=== PATIENT | female | born 1950 | race Caucasian/White ===

== ENCOUNTER 2020-05-21 14:24 | Inpatient (IN) | payer MEDICARE, MEDICAID ==
[~2020-05-21] VITALS: Ht 160 cm; Wt 68.9 kg
[~2020-05-21 14:24] MED LIST: GABA-531 PO; HYDR-523 PO; INSU100V28 IJ; MELO-106 PO; OXYB5TAB16 PO; TRAM50TA3 PO
[2020-05-21] MEDS ORDERED: SODIUM CHLORIDE 0.9% 1,000 ML IV ONE ×2 (15:06→22:45)
[2020-05-21] MEDS ORDERED: ONDANSETRON HCL 4MG/2ML INJ IV STA (15:06)
[2020-05-21] MEDS ORDERED: MORPHINE SULFATE 4 MG/ML CPJ (NOT FOR IM USE) IV ONE ×3 (15:30→22:45)
[2020-05-21 15:59] LABS: CHLORIDE 102 mEq/L (98-107)
[2020-05-21 16:08] LABS: BASOPHILS % 0.3 % (0.0-2.0); EOSINOPHILS % 0.2 % (0.0-5.0); HEMATOCRIT. 47.6 % (36.0-48.0); HEMOGLOBIN. 15.8 g/dL (12.0-16.0); MEAN CORPUSCULAR HEMOGLOBIN 29.4 pg (28.0-32.0); MEAN CORPUSCULAR VOLUME 88.5 fL (81.0-99.0); MEAN PLATELET VOLUME 10.8 fl (7.4-10.4); NEUTROPHILS % 84.5 % (40.0-76.0); PLATELET 139 x1000/uL (130-400); RED BLOOD CELL COUNT 5.38 mill/uL (4.2-5.4); RED CELL DISTRIBUTION WIDTH 13.9 % (11.6-14.6)
[2020-05-21] MEDS ORDERED: ONDANSETRON HCL 4MG/2ML INJ IV ONE ×2 (16:30→22:45)
[2020-05-21 17:45] LABS: BG BASE EXCESS -9.7 mmol/L (-2.0-2.0); BG CARBOXYHEMOGLOBIN 0.6 % (0.5-1.5); BG FRACTION INSPIRED OXYGEN 21; BG HCO3 ACT 15.9 mmol/L (22.0-26.0); BG METHEMOGLOBIN 0.1 % (0.0-1.5); BG OXYHEMOGLOBIN 92.3 % (94.0-97.0); BG PCO2 34.4 mmHg (35.0-45.0); BG PH 7.284 (7.350-7.450); BG PO2 73.9 mmHg (75.0-100.0); BG SAMPLE SITE RIGHT BRACHIAL; BG TOTAL HEMOGLOBIN 14.7 g/dL (12.0-18.0); BG VENT MODE ROOM AIR
[2020-05-21] MEDS ORDERED: INSULIN REGULAR (DRIP) 100 UNITS in SODIUM CHLORIDE 0.9% 99 ML IV ONE ×2 (18:00→18:15)
[2020-05-21 18:53] LABS: CHLORIDE 105 mEq/L (98-107)
[2020-05-21 18:59] LABS: PHOSPHORUS 4.2 mg/dL (2.5-4.9)
[2020-05-21 19:01] LABS: BETA HYDROXYBUTYRATE 4.8 mMol/L (0.0-0.3)
[2020-05-21 23:50] VITALS: BP 177/93
[2020-05-21 23:51] VITALS: BP 165/100
[2020-05-22] VITALS (55 sets, daily range): BP systolic 71–177; BP diastolic 25–96
[2020-05-22 00:46] LABS: CHLORIDE 110 mEq/L (98-107)
[2020-05-22 00:51] LABS: PHOSPHORUS 2.5 mg/dL (2.5-4.9)
[2020-05-22] MEDS ORDERED: DEXTROSE 50% WATER 50ML SYRINGE IV PRN ×6 (01:00→09:45)
[2020-05-22 01:03] LABS: CHLORIDE 112 mEq/L (98-107)
[2020-05-22 01:09] LABS: PHOSPHORUS 2.3 mg/dL (2.5-4.9)
[2020-05-22] MEDS: ONDANSETRON HCL 4MG/2ML INJ IV PRN ×4 (01:13→22:44)
[2020-05-22] MEDS: MORPHINE SULFATE 2 MG/ML CPJ (NOT FOR IM USE) IV PRN ×3 (01:14→18:28)
[2020-05-22] MEDS: BLOOD SUGAR DIAGNOSTIC STRIP TEST SCH ×10 (01:35→23:28)
[2020-05-22] MEDS: DEXT 5%/0.45% NACL KCL 20MEQ/L 1,000 ML IV SCH ×3 (02:41→22:11)
[2020-05-22] MEDS: PIPERACILLIN/TAZOBACTAM 3.375 G in DEXT 5% WATER 100 ML IV SCH ×4 (02:41→20:34)
[2020-05-22] MEDS: PANTOPRAZOLE 80 MG in SODIUM CHLORIDE 0.9% 100 ML IV SCH ×2 (02:43→13:21)
[2020-05-22] MEDS ORDERED: INSULIN REGULAR (DRIP) 100 UNITS in SODIUM CHLORIDE 0.9% 99 ML IV SCH (03:00)
[2020-05-22] MEDS: INSULIN LISPRO 100 UNITS/ML SUBCUT SCH ×3 (11:57→23:30)
[2020-05-22 12:26] LABS: BASOPHILS % 0.4 % (0.0-2.0); EOSINOPHILS % 0.3 % (0.0-5.0); HEMOGLOBIN. 14.4 g/dL (12.0-16.0); LYMPHOCYTES % 11.7 % (20.0-50.0); MEAN CORPUSCULAR HEMOGLOBIN 29.5 pg (28.0-32.0); MEAN CORPUSCULAR VOLUME 88.1 fL (81.0-99.0); MONOCYTES % 6.7 % (2.0-8.0); NEUTROPHILS % 80.9 % (40.0-76.0); RED BLOOD CELL COUNT 4.88 mill/uL (4.2-5.4); RED CELL DISTRIBUTION WIDTH 14.1 % (11.6-14.6)
[2020-05-22 13:03] LABS: PROTHROMBIN TIME 10.5 sec (9.6-11.0)
[2020-05-22 13:33] LABS: CLARITY URINE CLOUDY (CLEAR); COLOR URINE YELLOW (YELLOW); KETONES URINE 2+ (NEGATIVE); LEUKOCYTE ESTERASE URINE NEGATIVE (NEGATIVE); NITRITE URINE POSITIVE (NEGATIVE); OCCULT BLOOD URINE 1+ (NEGATIVE); PROTEIN URINE 1+ (NEGATIVE); SPECIFIC GRAVITY URINE 1.037 (1.005-1.030); UROBILINOGEN URINE 0.2 E.U./dL (0.2-1.0)
[2020-05-22 14:16] LABS: PLATELET 129 x1000/uL (130-400)
[2020-05-22 14:20] LABS: *AMPHETAMINES SCREEN URINE NEGATIVE (NEGATIVE); *BARBITURATES SCREEN URINE NEGATIVE (NEGATIVE); *BENZODIAZEPINES SCREEN URINE NEGATIVE (NEGATIVE); *COCAINE SCREEN URINE NEGATIVE (NEGATIVE); METHADONE URINE SCREEN NEGATIVE (NEGATIVE)
[2020-05-22 14:21] LABS: CANNABINOID URINE SCREEN NEGATIVE (NEGATIVE); OPIATES URINE SCREEN PRESUMTIVE POSITIVE (NEGATIVE); PHENCYCLIDINE URINE SCREEN NEGATIVE (NEGATIVE)
[2020-05-22] MEDS ORDERED: BISACODYL 10MG SUPP PR PRN (14:30)
[2020-05-22] MEDS ORDERED: DIPHENHYDRAMINE 50MG/ML VIAL IV PRN (14:30)
[2020-05-22] MEDS ORDERED: IPRATROPIUM/ALBUTEROL 0.5-3(2.5)MG/3ML NEB HHN PRN (14:30)
[2020-05-22] MEDS ORDERED: HYDRALAZINE 20MG/ML VIAL IV PRN (14:30)
[2020-05-22] MEDS ORDERED: ACETAMINOPHEN 325MG TABLET PO PRN (14:30)
[2020-05-22] MEDS ORDERED: LACTULOSE 20G/30ML UDC PO PRN (14:30)
[2020-05-22] MEDS ORDERED: ACETAMINOPHEN 650MG SUPP PR PRN (14:30)
[2020-05-22] MEDS: PANTOPRAZOLE SODIUM 40 MG/VIAL IV SCH (16:49)
[2020-05-22] MEDS ORDERED: MORPHINE SULFATE 2 MG/ML CPJ (NOT FOR IM USE) IV ONE (20:30)
[2020-05-23] VITALS (7 sets, daily range): BP systolic 108–163; BP diastolic 40–111
[2020-05-23] MEDS: MORPHINE SULFATE 2 MG/ML CPJ (NOT FOR IM USE) IV PRN ×4 (00:09→20:21)
[2020-05-23] MEDS: PIPERACILLIN/TAZOBACTAM 3.375 G in DEXT 5% WATER 100 ML IV SCH ×4 (02:49→20:20)
[2020-05-23] MEDS: ONDANSETRON HCL 4MG/2ML INJ IV PRN ×3 (04:02→20:20)
[2020-05-23 05:15] LABS: CHLORIDE 110 mEq/L (98-107)
[2020-05-23 05:17] LABS: TOTAL IRON BINDING CAPACITY 220 ug/dL (250-450)
[2020-05-23] MEDS: BLOOD SUGAR DIAGNOSTIC STRIP TEST SCH ×3 (05:42→17:10)
[2020-05-23] MEDS: INSULIN LISPRO 100 UNITS/ML SUBCUT SCH ×3 (05:44→17:10)
[2020-05-23 06:21] LABS: HEMATOCRIT 44.4 % (36.0-48.0); MEAN CORPUSCULAR HEMOGLOBIN 29.5 pg (28.0-32.0); MEAN CORPUSCULAR VOLUME 87.4 fL (81.0-99.0); PLATELET 133 x1000/uL (130-400); RED BLOOD CELL COUNT 5.08 mill/uL (4.2-5.4); RED CELL DISTRIBUTION WIDTH 14.2 % (11.6-14.6)
[2020-05-23] MEDS: PANTOPRAZOLE SODIUM 40 MG/VIAL IV SCH ×2 (09:20→16:06)
[2020-05-23] MEDS: DEXT 5%/0.45% NACL KCL 20MEQ/L 1,000 ML IV SCH (13:20)
[2020-05-23] MEDS: METOCLOPRAMIDE HCL 10MG/2ML VIAL IV SCH (17:54)
[2020-05-24] VITALS (8 sets, daily range): BP systolic 135–157; BP diastolic 69–110
[2020-05-24] MEDS: METOCLOPRAMIDE HCL 10MG/2ML VIAL IV SCH ×6 (00:24→17:27)
[2020-05-24] MEDS: BLOOD SUGAR DIAGNOSTIC STRIP TEST SCH ×4 (00:25→18:00)
[2020-05-24] MEDS: MORPHINE SULFATE 2 MG/ML CPJ (NOT FOR IM USE) IV PRN ×6 (00:26→17:18)
[2020-05-24] MEDS: INSULIN LISPRO 100 UNITS/ML SUBCUT SCH ×7 (00:35→20:36)
[2020-05-24] MEDS: PIPERACILLIN/TAZOBACTAM 3.375 G in DEXT 5% WATER 100 ML IV SCH ×5 (03:55→20:04)
[2020-05-24] MEDS: DEXT 5%/0.45% NACL KCL 20MEQ/L 1,000 ML IV SCH (04:23)
[2020-05-24] MEDS: PANTOPRAZOLE SODIUM 40 MG/VIAL IV SCH ×2 (09:09→17:18)
[2020-05-24 11:14] LABS: HEMATOCRIT 50.1 % (36.0-48.0); HEMOGLOBIN 16.7 g/dL (12.0-16.0); MEAN CORPUSCULAR HEMOGLOBIN 29.7 pg (28.0-32.0); MEAN CORPUSCULAR VOLUME 89.2 fL (81.0-99.0); RED BLOOD CELL COUNT 5.61 mill/uL (4.2-5.4); RED CELL DISTRIBUTION WIDTH 14.4 % (11.6-14.6)
[2020-05-24 12:54] LABS: CHLORIDE 107 mEq/L (98-107)
[2020-05-24 14:36] LABS: PLATELET 111 x1000/uL (130-400)
[2020-05-25] VITALS (7 sets, daily range): BP systolic 103–159; BP diastolic 60–96
[2020-05-25] MEDS: METOCLOPRAMIDE HCL 10MG/2ML VIAL IV SCH ×4 (00:06→17:42)
[2020-05-25] MEDS: MORPHINE SULFATE 2 MG/ML CPJ (NOT FOR IM USE) IV PRN ×5 (00:07→22:24)
[2020-05-25] MEDS: DEXT 5%/0.45% NACL KCL 20MEQ/L 1,000 ML IV SCH (00:08)
[2020-05-25] MEDS: PIPERACILLIN/TAZOBACTAM 3.375 G in DEXT 5% WATER 100 ML IV SCH ×4 (03:08→20:45)
[2020-05-25] MEDS: BLOOD SUGAR DIAGNOSTIC STRIP TEST SCH ×4 (05:29→17:36)
[2020-05-25] MEDS: INSULIN LISPRO 100 UNITS/ML SUBCUT SCH ×4 (05:31→21:00)
[2020-05-25 07:02] LABS: HEMATOCRIT 43.8 % (36.0-48.0); MEAN CORPUSCULAR HEMOGLOBIN 29.7 pg (28.0-32.0); MEAN CORPUSCULAR VOLUME 86.6 fL (81.0-99.0); PLATELET 148 x1000/uL (130-400); RED BLOOD CELL COUNT 5.06 mill/uL (4.2-5.4); RED CELL DISTRIBUTION WIDTH 13.8 % (11.6-14.6)
[2020-05-25 07:08] LABS: CHLORIDE 105 mEq/L (98-107)
[2020-05-25] MEDS: PANTOPRAZOLE SODIUM 40 MG/VIAL IV SCH ×2 (09:59→16:23)
[2020-05-25] MEDS: DEXT 5%/0.9% NACL KCL 20MEQ/L 1,000 ML IV SCH (14:38)
[2020-05-25] MEDS ORDERED: DIATR MEGLU/DIATRIZOATE SOLN 30ML PO SCH (17:00)
[2020-05-26] MEDS: PIPERACILLIN/TAZOBACTAM 3.375 G in DEXT 5% WATER 100 ML IV SCH ×4 (02:35→21:28)
[2020-05-26] MEDS: METOCLOPRAMIDE HCL 10MG/2ML VIAL IV SCH ×6 (02:35→18:00)
[2020-05-26] MEDS: MORPHINE SULFATE 2 MG/ML CPJ (NOT FOR IM USE) IV PRN ×3 (03:43→20:12)
[2020-05-26] MEDS: DEXT 5%/0.9% NACL KCL 20MEQ/L 1,000 ML IV SCH ×2 (03:44→20:12)
[2020-05-26 04:00] VITALS: BP 124/82
[2020-05-26] MEDS: BLOOD SUGAR DIAGNOSTIC STRIP TEST SCH ×5 (05:48→21:01)
[2020-05-26 06:31] LABS: BASOPHILS % 0.4 % (0.0-2.0); HEMATOCRIT. 41.3 % (36.0-48.0); HEMOGLOBIN. 14.1 g/dL (12.0-16.0); LYMPHOCYTES % 20.2 % (20.0-50.0); MEAN CORPUSCULAR HEMOGLOBIN 29.6 pg (28.0-32.0); MEAN CORPUSCULAR VOLUME 87.1 fL (81.0-99.0); MEAN PLATELET VOLUME 10.1 fl (7.4-10.4); MONOCYTES % 8.3 % (2.0-8.0); NEUTROPHILS % 65.1 % (40.0-76.0); PLATELET 123 x1000/uL (130-400); RED BLOOD CELL COUNT 4.74 mill/uL (4.2-5.4); RED CELL DISTRIBUTION WIDTH 13.7 % (11.6-14.6)
[2020-05-26 06:32] LABS: CHLORIDE 107 mEq/L (98-107)
[2020-05-26] MEDS: INSULIN LISPRO 100 UNITS/ML SUBCUT SCH ×4 (07:40→21:00)
[2020-05-26 08:00] VITALS: BP 135/90
[2020-05-26] MEDS: PANTOPRAZOLE SODIUM 40 MG/VIAL IV SCH ×2 (08:20→16:48)
[2020-05-26 11:33] VITALS: BP 149/95
[2020-05-26] MEDS ORDERED: LACTULOSE 20G/30ML UDC PO NR (11:45)
[2020-05-26 11:50] VITALS: BP 149/95
[2020-05-26] MEDS ORDERED: POTASSIUM CHLORIDE INJ 40 MEQ in DEXT 5% WATER 250 ML IV SCH (12:00)
[2020-05-26] MEDS ORDERED: ONDANSETRON HCL 4MG/2ML INJ IV SCH (14:30)
[2020-05-26 16:00] VITALS: BP 162/95
[2020-05-26] MEDS ORDERED: IOHEXOL-300 100 ML BOTTLE ONE (19:20)
[2020-05-26 20:00] VITALS: BP 165/85
[2020-05-27] VITALS: BP 150/66
[2020-05-27] MEDS: METOCLOPRAMIDE HCL 10MG/2ML VIAL IV SCH ×4 (00:15→18:07)
[2020-05-27] MEDS ORDERED: MORPHINE SULFATE 2 MG/ML CPJ (NOT FOR IM USE) IV PRN ×2 (03:00→06:45)
[2020-05-27 04:00] VITALS: BP 136/87
[2020-05-27] MEDS: DEXT 5%/0.9% NACL KCL 20MEQ/L 1,000 ML IV SCH (05:11)
[2020-05-27] MEDS: BLOOD SUGAR DIAGNOSTIC STRIP TEST SCH ×3 (06:00→18:02)
[2020-05-27 06:22] LABS: BASOPHILS % 0.6 % (0.0-2.0); HEMATOCRIT. 44.6 % (36.0-48.0); HEMOGLOBIN. 15.8 g/dL (12.0-16.0); MEAN CORPUSCULAR HEMOGLOBIN 30.2 pg (28.0-32.0); MEAN CORPUSCULAR VOLUME 85.5 fL (81.0-99.0); MEAN PLATELET VOLUME 9.8 fl (7.4-10.4); MONOCYTES % 9.4 % (2.0-8.0); PLATELET 141 x1000/uL (130-400); RED BLOOD CELL COUNT 5.22 mill/uL (4.2-5.4); RED CELL DISTRIBUTION WIDTH 13.9 % (11.6-14.6)
[2020-05-27 06:47] LABS: CHLORIDE 103 mEq/L (98-107)
[2020-05-27] MEDS: INSULIN LISPRO 100 UNITS/ML SUBCUT SCH ×3 (07:08→18:08)
[2020-05-27 08:00] VITALS: BP 134/94
[2020-05-27] MEDS: PANTOPRAZOLE SODIUM 40 MG/VIAL IV SCH ×2 (08:18→16:08)
[2020-05-27 12:00] VITALS: BP 140/83
[2020-05-27] MEDS ORDERED: AMITRIPTYLINE 10MG TABLET PO SCH (13:00)
[2020-05-27] MEDS ORDERED: FAMO-135 PO (14:22)
[2020-05-27] MEDS ORDERED: METO-293 MT (14:22)
[2020-05-27 15:57] VITALS: BP 122/72
== END 2020-05-27 19:35 | disposition home or self-care (01) | DRG 48 ==
LOC: ER 14:40 → MICUSO 19:20 → EDBEDREQTM 19:29 → EDBEDREQ 19:29 → ENRESERV 22:53 → 7WST 05-22 18:59 → 8WST 05-23 21:16
PROVIDERS: ADMIT Internal Medicine; ATTEND Internal Medicine
DX: E11.43 Type 2 diabetes mellitus with diabetic autonomic (poly)neuropathy (principal); E11.10 Type 2 diabetes mellitus with ketoacidosis without coma; E87.6 Hypokalemia; I25.10 Atherosclerotic heart disease of native coronary artery without angina pectoris; K57.90 Diverticulosis of intestine, part unspecified, without perforation or abscess without bleeding; N20.0 Calculus of kidney; K92.0 Hematemesis; R74.0 Nonspecific elevation of levels of transaminase and lactic acid dehydrogenase [LDH]; K31.84 Gastroparesis; K80.20 Calculus of gallbladder without cholecystitis without obstruction; K21.9 Gastro-esophageal reflux disease without esophagitis; F10.10 Alcohol abuse, uncomplicated; J81.1 Chronic pulmonary edema; M21.952 Unspecified acquired deformity of left thigh; N39.0 Urinary tract infection, site not specified; N32.89 Other specified disorders of bladder; I11.9 Hypertensive heart disease without heart failure; F41.9 Anxiety disorder, unspecified; M89.521 Osteolysis, right upper arm; Z20.828 Contact with and (suspected) exposure to other viral communicable diseases; Z79.899 Other long term (current) drug therapy; Z86.73 Personal history of transient ischemic attack (TIA), and cerebral infarction without residual deficits; Z91.19 Patient's noncompliance with other medical treatment and regimen; Z99.3 Dependence on wheelchair; Z79.4 Long term (current) use of insulin; Z87.891 Personal history of nicotine dependence
CPT/HCPCS: 36415; 36600; 71045; 74176; 74177; 76705; 78227; 80048; 80053; 80076; 80305; 81003; 82010; 82375; 82728; 82805; 82962; 83036; 83540; 83550; 83735; 84100; 85025; 85027; 87635; 93005; 93970; 99285; A9537; C9113; J1815; J2270; J2405; J2543; J2765; J3480; J7030; J7050; J7060; Q9967

== ENCOUNTER 2020-06-06 06:11 | Emergency (ER) | payer MEDICARE, MEDICAID ==
[~2020-06-06] VITALS: Ht 160 cm; Wt 73.0 kg
[~2020-06-06 06:11] MED LIST changes: +FAMO-135 PO; +METO-293 MT
[2020-06-06 07:11] LABS: BASOPHILS % 0.8 % (0.0-2.0); EOSINOPHILS % 7.2 % (0.0-5.0); HEMATOCRIT. 34.2 % (36.0-48.0); HEMOGLOBIN. 11.7 g/dL (12.0-16.0); LYMPHOCYTES % 25.1 % (20.0-50.0); MEAN CORPUSCULAR HEMOGLOBIN 30.1 pg (28.0-32.0); MEAN CORPUSCULAR VOLUME 88.1 fL (81.0-99.0); MEAN PLATELET VOLUME 9.9 fl (7.4-10.4); MONOCYTES % 10.2 % (2.0-8.0); NEUTROPHILS % 56.7 % (40.0-76.0); PLATELET 133 x1000/uL (130-400); RED BLOOD CELL COUNT 3.88 mill/uL (4.2-5.4); RED CELL DISTRIBUTION WIDTH 14.8 % (11.6-14.6)
[2020-06-06 07:28] LABS: CHLORIDE 107 mEq/L (98-107)
[2020-06-06] MEDS ORDERED: IOHEXOL-350 100 ML BOTTLE ONE (11:27)
[2020-06-06] MEDS ORDERED: MORPHINE SULFATE 4 MG/ML CPJ (NOT FOR IM USE) IV STA (12:33)
[2020-06-06] MEDS ORDERED: ONDANSETRON HCL 4MG/2ML INJ IV STA (12:33)
[2020-06-06 13:03] VITALS: BP 140/73
== END 2020-06-06 13:24 | disposition short-term general hospital (02) ==
LOC: ER 06:11 → CANBEDREQ 13:16 → ER 13:24
DX: R07.89 Other chest pain (principal); R06.02 Shortness of breath; I10 Essential (primary) hypertension; I21.3 ST elevation (STEMI) myocardial infarction of unspecified site; D72.819 Decreased white blood cell count, unspecified; J98.11 Atelectasis; R79.89 Other specified abnormal findings of blood chemistry; E11.9 Type 2 diabetes mellitus without complications; Z79.899 Other long term (current) drug therapy
CPT/HCPCS: 36415; 71045; 71275; 80053; 82962; 83880; 84484; 85025; 85379; 93005; 96374; 96375; 99285; J2270; J2405; Q9967

== ENCOUNTER 2020-09-25 07:03 | Emergency (ER) | payer MEDICARE, MEDICAID ==
[~2020-09-25] VITALS: Ht 165.1 cm; Wt 73.0 kg
[2020-09-25] MEDS ORDERED: KETOROLAC 60MG/2ML VIAL IM ONE (08:15)
[2020-09-25 08:39] VITALS: BP 132/84
== END 2020-09-25 10:00 | disposition home or self-care (01) ==
LOC: ER 07:20
DX: T23.101A Burn of first degree of right hand, unspecified site, initial encounter (principal); T21.12XA Burn of first degree of abdominal wall, initial encounter; T31.0 Burns involving less than 10% of body surface; X12.XXXA Contact with other hot fluids, initial encounter; Y93.89 Activity, other specified; Y92.89 Other specified places as the place of occurrence of the external cause; Y99.8 Other external cause status; E11.9 Type 2 diabetes mellitus without complications; I10 Essential (primary) hypertension; Z86.73 Personal history of transient ischemic attack (TIA), and cerebral infarction without residual deficits; Z79.899 Other long term (current) drug therapy
CPT/HCPCS: 96372; 99284; J1885

== ENCOUNTER 2020-11-20 01:42 | Emergency (ER) | payer MEDICARE, OTHER ==
[~2020-11-20] VITALS: Ht 162.6 cm; Wt 100.0 kg
[~2020-11-20 01:42] MED LIST changes: -GABA-531 PO; +GABA-532 PO
[2020-11-20 03:38] LABS: BASOPHILS % 0.4 % (0.0-2.0); EOSINOPHILS % 4.5 % (0.0-5.0); HEMATOCRIT. 33.7 % (36.0-48.0); HEMOGLOBIN. 11.6 g/dL (12.0-16.0); LYMPHOCYTES % 11.9 % (20.0-50.0); MEAN CORPUSCULAR HEMOGLOBIN 29.8 pg (28.0-32.0); MEAN CORPUSCULAR VOLUME 86.2 fL (81.0-99.0); MEAN PLATELET VOLUME 9.5 fl (7.4-10.4); MONOCYTES % 6.6 % (2.0-8.0); NEUTROPHILS % 76.6 % (40.0-76.0); PLATELET 167 x1000/uL (130-400); RED BLOOD CELL COUNT 3.91 mill/uL (4.2-5.4); RED CELL DISTRIBUTION WIDTH 14.6 % (11.6-14.6)
[2020-11-20 03:40] LABS: CHLORIDE 109 mEq/L (98-107)
[2020-11-20 03:45] LABS: PARTIAL THROMBOPLASTIN TIME 26.1 sec (23.4-31.0); PROTHROMBIN TIME 10.5 sec (9.6-11.0)
[2020-11-20] MEDS ORDERED: SODIUM CHLORIDE 0.9% 500 ML IV ONE (05:00)
[2020-11-20 07:15] VITALS: BP 129/58
== END 2020-11-20 07:20 | disposition home or self-care (01) ==
LOC: ER 01:42
DX: R04.0 Epistaxis (principal); R00.0 Tachycardia, unspecified; R03.0 Elevated blood-pressure reading, without diagnosis of hypertension; D64.9 Anemia, unspecified; E11.9 Type 2 diabetes mellitus without complications; Z79.4 Long term (current) use of insulin; Z79.899 Other long term (current) drug therapy
CPT/HCPCS: 36415; 80053; 85025; 85610; 85730; 93005; 96360; 99285; J7040

== ENCOUNTER 2020-11-28 22:00 | Emergency (ER) | payer MEDICARE, OTHER ==
[~2020-11-28] VITALS: Ht 165.1 cm; Wt 70.0 kg
[2020-11-28] MEDS ORDERED: KETOROLAC 30MG/ML VIAL IV STA (22:40)
[2020-11-28] MEDS ORDERED: SODIUM CHLORIDE 0.9% 1,000 ML IV ONE (22:45)
[2020-11-28 23:06] LABS: BASOPHILS % 0.6 % (0.0-2.0); EOSINOPHILS % 4.2 % (0.0-5.0); HEMATOCRIT. 31.2 % (36.0-48.0); HEMOGLOBIN. 10.4 g/dL (12.0-16.0); LYMPHOCYTES % 15.5 % (20.0-50.0); MEAN CORPUSCULAR VOLUME 87.3 fL (81.0-99.0); MEAN PLATELET VOLUME 8.9 fl (7.4-10.4); MONOCYTES % 8.6 % (2.0-8.0); NEUTROPHILS % 71.1 % (40.0-76.0); PLATELET 162 x1000/uL (130-400); RED BLOOD CELL COUNT 3.58 mill/uL (4.2-5.4); RED CELL DISTRIBUTION WIDTH 15.5 % (11.6-14.6)
[2020-11-28 23:12] LABS: CHLORIDE 109 mEq/L (98-107)
[2020-11-28 23:16] LABS: PROTHROMBIN TIME 10.5 sec (9.6-11.0)
[2020-11-29] MEDS ORDERED: IBUP-2028 MT (01:05)
[2020-11-29] MEDS ORDERED: LIDO700A15 TP (01:05)
[2020-11-29 01:33] LABS: CLARITY URINE CLEAR (CLEAR); COLOR URINE YELLOW (YELLOW); KETONES URINE NEGATIVE (NEGATIVE); LEUKOCYTE ESTERASE URINE 1+ (NEGATIVE); NITRITE URINE NEGATIVE (NEGATIVE); OCCULT BLOOD URINE NEGATIVE (NEGATIVE); PH URINE 6.5 (4.5-8.0); PROTEIN URINE NEGATIVE (NEGATIVE); SPECIFIC GRAVITY URINE 1.009 (1.005-1.030); UROBILINOGEN URINE 0.2 E.U./dL (0.2-1.0)
[2020-11-29 01:45] VITALS: BP 164/78
== END 2020-11-29 02:01 | disposition home or self-care (01) ==
LOC: ER 22:00
DX: M54.9 Dorsalgia, unspecified (principal); D64.9 Anemia, unspecified; K80.20 Calculus of gallbladder without cholecystitis without obstruction; E11.9 Type 2 diabetes mellitus without complications; Z79.899 Other long term (current) drug therapy
CPT/HCPCS: 36415; 74176; 80053; 81003; 83690; 85025; 85610; 93005; 96361; 96374; 99285; J1885; J7030

== ENCOUNTER 2021-10-29 00:24 | Inpatient (IN) | payer MEDICARE, MEDICAID ==
[~2021-10-29] VITALS: Ht 160 cm; Wt 72.7 kg
[~2021-10-29 00:24] MED LIST changes: +IBUP-2028 MT; +LIDO700A15 TP
[2021-10-29] MEDS ORDERED: ACETAMINOPHEN 325MG TABLET PO STA (01:02)
[2021-10-29] MEDS ORDERED: CEFTRIAXONE 1 G PREMIX 50 ML IV ONE (01:15)
[2021-10-29 01:29] LABS: BASOPHILS % 0.4 % (0.0-2.0); EOSINOPHILS % 4.7 % (0.0-5.0); HEMOGLOBIN. 12.2 g/dL (12.0-16.0); LYMPHOCYTES % 13.3 % (20.0-50.0); MEAN CORPUSCULAR HEMOGLOBIN 28.3 pg (28.0-32.0); MEAN CORPUSCULAR VOLUME 85.7 fL (81.0-99.0); MEAN PLATELET VOLUME 9.1 fl (7.4-10.4); MONOCYTES % 6.9 % (2.0-8.0); NEUTROPHILS % 74.7 % (40.0-76.0); PLATELET 174 x1000/uL (130-400); RED BLOOD CELL COUNT 4.32 mill/uL (4.2-5.4); RED CELL DISTRIBUTION WIDTH 13.9 % (11.6-14.6)
[2021-10-29 01:50] LABS: CHLORIDE 108 mEq/L (98-107)
[2021-10-29 08:12] LABS: CLARITY URINE CLEAR (CLEAR); COLOR URINE YELLOW (YELLOW); KETONES URINE TRACE (NEGATIVE); LEUKOCYTE ESTERASE URINE TRACE (NEGATIVE); NITRITE URINE NEGATIVE (NEGATIVE); OCCULT BLOOD URINE NEGATIVE (NEGATIVE); PH URINE 6.5 (4.5-8.0); PROTEIN URINE NEGATIVE (NEGATIVE); SPECIFIC GRAVITY URINE 1.014 (1.005-1.030)
[2021-10-29] MEDS ORDERED: CLONIDINE 0.1MG TABLET PO PRN (09:30)
[2021-10-29] MEDS ORDERED: GUAIFENESIN 200MG/10ML SUGAR FREE UDC PO PRN (09:30)
[2021-10-29] MEDS ORDERED: ONDANSETRON HCL 4MG/2ML INJ IV PRN (09:30)
[2021-10-29 16:00] VITALS: BP 136/66
[2021-10-29 16:43] VITALS: BP 136/66
[2021-10-29] MEDS ORDERED: NALOXONE HCL 0.4MG/ML VIAL IV PRN (18:45)
[2021-10-29 20:00] VITALS: BP 106/54
[2021-10-29] MEDS: TRAMADOL 50MG TABLET PO PRN (20:37)
[2021-10-29] MEDS ORDERED: CEFTRIAXONE 1 G PREMIX 50 ML IV SCH (21:00)
[2021-10-29] MEDS ORDERED: CEFTRIAXONE 1,000 MG in DEXTROSE 5% WATER 50 ML IV SCH (21:00)
[2021-10-29] MEDS ORDERED: INSU100I24 SQ (21:52)
[2021-10-29] MEDS ORDERED: DEXTROSE 50% WATER 50ML SYRINGE IV PRN (22:00)
[2021-10-29] MEDS ORDERED: INSULIN GLARGINE UD 100 UNITS/ML SYR SUBCUT SCH (23:00)
[2021-10-30] VITALS: BP 112/58
[2021-10-30] MEDS: GABAPENTIN 300MG CAPSULE PO SCH ×4 (01:12→21:24)
[2021-10-30] MEDS: TRAMADOL 50MG TABLET PO PRN ×5 (01:12→21:28)
[2021-10-30 04:00] VITALS: BP 124/60
[2021-10-30 06:47] LABS: BASOPHILS % 0.5 % (0.0-2.0); HEMOGLOBIN. 10.7 g/dL (12.0-16.0); LYMPHOCYTES % 20.2 % (20.0-50.0); MEAN CORPUSCULAR HEMOGLOBIN 28.9 pg (28.0-32.0); MEAN CORPUSCULAR VOLUME 83.8 fL (81.0-99.0); MEAN PLATELET VOLUME 9.2 fl (7.4-10.4); MONOCYTES % 9.1 % (2.0-8.0); NEUTROPHILS % 64.2 % (40.0-76.0); PLATELET 166 x1000/uL (130-400); RED CELL DISTRIBUTION WIDTH 13.6 % (11.6-14.6)
[2021-10-30] MEDS: BLOOD SUGAR DIAGNOSTIC STRIP TEST SCH ×4 (06:54→21:24)
[2021-10-30 06:59] LABS: CHLORIDE 112 mEq/L (98-107)
[2021-10-30] MEDS: INSULIN LISPRO 100 UNITS/ML SUBCUT SCH ×4 (07:50→21:00)
[2021-10-30 08:00] VITALS: BP 105/40
[2021-10-30 12:00] VITALS: BP 109/52
[2021-10-30 16:00] VITALS: BP 118/73
[2021-10-30] MEDS ORDERED: ENOXAPARIN 40MG/0.4ML SYR SUBCUT NR (18:30)
[2021-10-30 20:00] VITALS: BP 142/68
[2021-10-30] MEDS ORDERED: ENOXAPARIN 30MG/0.3ML SYR SUBCUT NR (21:00)
[2021-10-30] MEDS: PIPERACILLIN/TAZOBACTAM 3.375 G in DEXTROSE 5% WATER 50 ML IV SCH (21:24)
[2021-10-30] MEDS: FAMOTIDINE 20MG TABLET PO SCH (21:24)
[2021-10-31] VITALS: BP 112/88
[2021-10-31] MEDS: TRAMADOL 50MG TABLET PO PRN ×3 (03:58→20:56)
[2021-10-31 04:00] VITALS: BP 123/51
[2021-10-31] MEDS: PIPERACILLIN/TAZOBACTAM 3.375 G in DEXTROSE 5% WATER 50 ML IV SCH ×3 (05:09→21:00)
[2021-10-31] MEDS: GABAPENTIN 300MG CAPSULE PO SCH ×3 (05:09→21:00)
[2021-10-31] MEDS: BLOOD SUGAR DIAGNOSTIC STRIP TEST SCH ×4 (06:30→20:53)
[2021-10-31] MEDS: INSULIN LISPRO 100 UNITS/ML SUBCUT SCH ×4 (07:39→20:53)
[2021-10-31 08:00] VITALS: BP 104/62
[2021-10-31] MEDS: LINAGLIPTIN 5MG TABLET PO SCH (08:56)
[2021-10-31] MEDS: ENOXAPARIN 80MG/0.8ML SYR SUBCUT SCH ×2 (08:56→20:56)
[2021-10-31] MEDS: DOCUSATE SODIUM 100MG CAPSULE PO PRN (08:57)
[2021-10-31] MEDS: DOCUSATE SODIUM 250MG CAPSULE PO SCH (09:00)
[2021-10-31 09:09] LABS: TOTAL IRON BINDING CAPACITY 228 ug/dL (250-450)
[2021-10-31 12:02] VITALS: BP 148/77
[2021-10-31 16:00] VITALS: BP 156/75
[2021-10-31 20:00] VITALS: BP 134/56
[2021-10-31] MEDS: FAMOTIDINE 20MG TABLET PO SCH (20:56)
[2021-10-31] MEDS: ACETAMINOPHEN 325MG TABLET PO PRN (22:21)
[2021-11-01] VITALS: BP 147/73
[2021-11-01 04:00] VITALS: BP 134/75
[2021-11-01] MEDS: GABAPENTIN 300MG CAPSULE PO SCH ×3 (05:10→21:00)
[2021-11-01] MEDS: PIPERACILLIN/TAZOBACTAM 3.375 G in DEXTROSE 5% WATER 50 ML IV SCH ×3 (05:10→21:00)
[2021-11-01] MEDS: TRAMADOL 50MG TABLET PO PRN ×3 (05:11→21:13)
[2021-11-01] MEDS: BLOOD SUGAR DIAGNOSTIC STRIP TEST SCH ×4 (07:37→21:09)
[2021-11-01 08:00] VITALS: BP 151/79
[2021-11-01] MEDS: ENOXAPARIN 80MG/0.8ML SYR SUBCUT SCH ×2 (08:39→21:01)
[2021-11-01] MEDS: LINAGLIPTIN 5MG TABLET PO SCH (08:39)
[2021-11-01] MEDS: INSULIN LISPRO 100 UNITS/ML SUBCUT SCH ×4 (08:45→21:00)
[2021-11-01] MEDS: DOCUSATE SODIUM 250MG CAPSULE PO SCH (08:50)
[2021-11-01] MEDS: SODIUM CHLORIDE 0.45% 1,000 ML IV SCH ×2 (09:50→18:51)
[2021-11-01 11:00] LABS: BASOPHILS % 0.7 % (0.0-2.0); EOSINOPHILS % 7.3 % (0.0-5.0); HEMATOCRIT. 34.2 % (36.0-48.0); HEMOGLOBIN. 11.4 g/dL (12.0-16.0); LYMPHOCYTES % 21.6 % (20.0-50.0); MEAN CORPUSCULAR HEMOGLOBIN 28.3 pg (28.0-32.0); MONOCYTES % 8.2 % (2.0-8.0); NEUTROPHILS % 62.2 % (40.0-76.0); PLATELET 174 x1000/uL (130-400); RED BLOOD CELL COUNT 4.02 mill/uL (4.2-5.4); RED CELL DISTRIBUTION WIDTH 13.8 % (11.6-14.6)
[2021-11-01] MEDS: ACETAMINOPHEN 325MG TABLET PO PRN (11:55)
[2021-11-01 12:00] VITALS: BP 116/58
[2021-11-01 16:00] VITALS: BP 149/78
[2021-11-01 20:00] VITALS: BP 159/60
[2021-11-01] MEDS: FAMOTIDINE 20MG TABLET PO SCH (21:00)
[2021-11-02] VITALS: BP 153/73
[2021-11-02] MEDS: PIPERACILLIN/TAZOBACTAM 3.375 G in DEXTROSE 5% WATER 50 ML IV SCH ×3 (05:55→21:42)
[2021-11-02] MEDS: GABAPENTIN 300MG CAPSULE PO SCH ×3 (05:55→21:52)
[2021-11-02] MEDS: TRAMADOL 50MG TABLET PO PRN ×3 (05:56→21:53)
[2021-11-02 08:00] VITALS: BP 126/58
[2021-11-02] MEDS: BLOOD SUGAR DIAGNOSTIC STRIP TEST SCH ×4 (08:09→21:51)
[2021-11-02] MEDS: LINAGLIPTIN 5MG TABLET PO SCH (08:15)
[2021-11-02] MEDS: ENOXAPARIN 80MG/0.8ML SYR SUBCUT SCH ×2 (08:16→21:51)
[2021-11-02] MEDS: DOCUSATE SODIUM 250MG CAPSULE PO SCH (08:16)
[2021-11-02] MEDS: INSULIN LISPRO 100 UNITS/ML SUBCUT SCH ×4 (08:27→21:00)
[2021-11-02] MEDS: LOSARTAN POTASSIUM 25 MG TABLET PO SCH (10:07)
[2021-11-02 10:40] LABS: BASOPHILS % 0.5 % (0.0-2.0); EOSINOPHILS % 5.9 % (0.0-5.0); HEMATOCRIT. 36.2 % (36.0-48.0); HEMOGLOBIN. 11.9 g/dL (12.0-16.0); LYMPHOCYTES % 19.8 % (20.0-50.0); MEAN CORPUSCULAR HEMOGLOBIN 28.2 pg (28.0-32.0); MEAN CORPUSCULAR VOLUME 85.8 fL (81.0-99.0); MONOCYTES % 6.7 % (2.0-8.0); NEUTROPHILS % 67.1 % (40.0-76.0); PLATELET 185 x1000/uL (130-400); RED BLOOD CELL COUNT 4.22 mill/uL (4.2-5.4); RED CELL DISTRIBUTION WIDTH 13.6 % (11.6-14.6)
[2021-11-02 10:43] LABS: CHLORIDE 105 mEq/L (98-107)
[2021-11-02] MEDS ORDERED: IOHEXOL-350 100 ML BOTTLE ONE (10:59)
[2021-11-02] MEDS: SODIUM CHL 0.45% + KCL 20MEQ/L 1,000 ML IV SCH ×2 (11:25→21:41)
[2021-11-02 12:00] VITALS: BP 160/99
[2021-11-02] MEDS: SODIUM CHLORIDE 0.45% 1,000 ML IV SCH (14:03)
[2021-11-02 16:00] VITALS: BP 118/62
[2021-11-02] MEDS: ACETAMINOPHEN 325MG TABLET PO PRN (18:15)
[2021-11-02 20:00] VITALS: BP 101/43
[2021-11-02] MEDS: FAMOTIDINE 20MG TABLET PO SCH (21:49)
[2021-11-02] MEDS: ATORVASTATIN CALCIUM 10MG TABLET PO SCH (21:49)
[2021-11-03] VITALS: BP 110/42
[2021-11-03] MEDS: SODIUM CHLORIDE 0.45% 1,000 ML IV SCH ×3 (01:00→21:43)
[2021-11-03 04:00] VITALS: BP 130/68
[2021-11-03] MEDS: PIPERACILLIN/TAZOBACTAM 3.375 G in DEXTROSE 5% WATER 50 ML IV SCH ×3 (05:20→21:42)
[2021-11-03] MEDS: GABAPENTIN 300MG CAPSULE PO SCH ×3 (05:20→21:50)
[2021-11-03] MEDS: TRAMADOL 50MG TABLET PO PRN ×3 (05:36→22:27)
[2021-11-03] MEDS: BLOOD SUGAR DIAGNOSTIC STRIP TEST SCH ×4 (07:20→21:46)
[2021-11-03 07:49] LABS: BASOPHILS % 0.5 % (0.0-2.0); EOSINOPHILS % 6.8 % (0.0-5.0); HEMATOCRIT. 34.4 % (36.0-48.0); HEMOGLOBIN. 11.7 g/dL (12.0-16.0); LYMPHOCYTES % 21.6 % (20.0-50.0); MEAN CORPUSCULAR HEMOGLOBIN 28.9 pg (28.0-32.0); MEAN CORPUSCULAR VOLUME 84.8 fL (81.0-99.0); MEAN PLATELET VOLUME 9.4 fl (7.4-10.4); MONOCYTES % 8.9 % (2.0-8.0); NEUTROPHILS % 62.2 % (40.0-76.0); PLATELET 155 x1000/uL (130-400); RED BLOOD CELL COUNT 4.05 mill/uL (4.2-5.4); RED CELL DISTRIBUTION WIDTH 13.9 % (11.6-14.6)
[2021-11-03] MEDS: INSULIN LISPRO 100 UNITS/ML SUBCUT SCH ×4 (07:50→21:00)
[2021-11-03 08:00] VITALS: BP 126/56
[2021-11-03] MEDS: LINAGLIPTIN 5MG TABLET PO SCH (08:45)
[2021-11-03] MEDS: LOSARTAN POTASSIUM 25 MG TABLET PO SCH (08:45)
[2021-11-03] MEDS: ENOXAPARIN 80MG/0.8ML SYR SUBCUT SCH ×2 (08:46→21:42)
[2021-11-03] MEDS: DOCUSATE SODIUM 250MG CAPSULE PO SCH (08:47)
[2021-11-03 12:00] VITALS: BP 99/55
[2021-11-03 16:00] VITALS: BP 112/41
[2021-11-03 20:00] VITALS: BP 146/64
[2021-11-03] MEDS: ATORVASTATIN CALCIUM 10MG TABLET PO SCH (21:42)
[2021-11-03] MEDS: FAMOTIDINE 20MG TABLET PO SCH (21:42)
[2021-11-03] MEDS ORDERED: NALOXONE HCL 0.4 MG/ML 1ML VIAL IV PRN (22:30)
[2021-11-04] VITALS: BP 120/65
[2021-11-04 04:00] VITALS: BP 135/75
[2021-11-04] MEDS: PIPERACILLIN/TAZOBACTAM 3.375 G in DEXTROSE 5% WATER 50 ML IV SCH (05:29)
[2021-11-04] MEDS: GABAPENTIN 300MG CAPSULE PO SCH ×3 (05:30→21:02)
[2021-11-04] MEDS: SODIUM CHLORIDE 0.45% 1,000 ML IV SCH ×2 (05:30→17:00)
[2021-11-04] MEDS: BLOOD SUGAR DIAGNOSTIC STRIP TEST SCH ×4 (05:31→21:12)
[2021-11-04] MEDS: TRAMADOL 50MG TABLET PO PRN ×3 (05:57→21:03)
[2021-11-04 08:00] VITALS: BP 117/48
[2021-11-04] MEDS: LOSARTAN POTASSIUM 25 MG TABLET PO SCH (08:25)
[2021-11-04] MEDS: LINAGLIPTIN 5MG TABLET PO SCH (08:25)
[2021-11-04] MEDS: DOCUSATE SODIUM 250MG CAPSULE PO SCH ×3 (08:25→09:00)
[2021-11-04] MEDS: ENOXAPARIN 80MG/0.8ML SYR SUBCUT SCH ×2 (08:27→21:02)
[2021-11-04] MEDS: ACETAMINOPHEN 325MG TABLET PO PRN (08:38)
[2021-11-04] MEDS: INSULIN LISPRO 100 UNITS/ML SUBCUT SCH ×4 (08:39→21:16)
[2021-11-04 09:03] LABS: BASOPHILS % 0.6 % (0.0-2.0); EOSINOPHILS % 6.4 % (0.0-5.0); HEMATOCRIT. 34.6 % (36.0-48.0); HEMOGLOBIN. 11.6 g/dL (12.0-16.0); LYMPHOCYTES % 21.4 % (20.0-50.0); MEAN CORPUSCULAR HEMOGLOBIN 28.5 pg (28.0-32.0); MEAN CORPUSCULAR VOLUME 85.2 fL (81.0-99.0); MEAN PLATELET VOLUME 9.2 fl (7.4-10.4); MONOCYTES % 7.9 % (2.0-8.0); NEUTROPHILS % 63.7 % (40.0-76.0); PLATELET 167 x1000/uL (130-400); RED BLOOD CELL COUNT 4.06 mill/uL (4.2-5.4); RED CELL DISTRIBUTION WIDTH 13.6 % (11.6-14.6)
[2021-11-04 12:18] VITALS: BP 110/53
[2021-11-04 16:00] VITALS: BP 106/76
[2021-11-04 20:00] VITALS: BP 125/67
[2021-11-04] MEDS: FAMOTIDINE 20MG TABLET PO SCH (21:02)
[2021-11-04] MEDS: ATORVASTATIN CALCIUM 10MG TABLET PO SCH (21:02)
[2021-11-05] VITALS: BP 127/58
[2021-11-05] MEDS: SODIUM CHLORIDE 0.45% 1,000 ML IV SCH ×3 (03:00→22:26)
[2021-11-05 04:00] VITALS: BP 133/66
[2021-11-05] MEDS: GABAPENTIN 300MG CAPSULE PO SCH ×3 (05:01→21:07)
[2021-11-05] MEDS: TRAMADOL 50MG TABLET PO PRN ×3 (05:01→21:07)
[2021-11-05] MEDS: BLOOD SUGAR DIAGNOSTIC STRIP TEST SCH ×4 (06:51→21:01)
[2021-11-05 08:00] VITALS: BP 125/51
[2021-11-05] MEDS: ACETAMINOPHEN 325MG TABLET PO PRN ×2 (08:38→22:25)
[2021-11-05] MEDS: LOSARTAN POTASSIUM 25 MG TABLET PO SCH (08:38)
[2021-11-05] MEDS: LINAGLIPTIN 5MG TABLET PO SCH (08:38)
[2021-11-05] MEDS: DOCUSATE SODIUM 250MG CAPSULE PO SCH (08:38)
[2021-11-05] MEDS: INSULIN LISPRO 100 UNITS/ML SUBCUT SCH ×4 (08:43→21:08)
[2021-11-05] MEDS: ENOXAPARIN 80MG/0.8ML SYR SUBCUT SCH ×2 (08:46→21:00)
[2021-11-05 12:00] VITALS: BP 104/44
[2021-11-05 16:00] VITALS: BP 125/52
[2021-11-05 20:00] VITALS: BP 120/57
[2021-11-05] MEDS: FAMOTIDINE 20MG TABLET PO SCH (21:07)
[2021-11-05] MEDS: ATORVASTATIN CALCIUM 10MG TABLET PO SCH (21:07)
[2021-11-06] VITALS (7 sets, daily range): BP systolic 119–155; BP diastolic 61–79
[2021-11-06] MEDS: GABAPENTIN 300MG CAPSULE PO SCH ×3 (05:54→21:36)
[2021-11-06 06:45] LABS: BASOPHILS % 0.6 % (0.0-2.0); EOSINOPHILS % 7.9 % (0.0-5.0); HEMATOCRIT. 34.1 % (36.0-48.0); HEMOGLOBIN. 11.3 g/dL (12.0-16.0); MEAN CORPUSCULAR HEMOGLOBIN 28.3 pg (28.0-32.0); MEAN CORPUSCULAR VOLUME 85.1 fL (81.0-99.0); MEAN PLATELET VOLUME 9.1 fl (7.4-10.4); MONOCYTES % 7.9 % (2.0-8.0); NEUTROPHILS % 58.6 % (40.0-76.0); PLATELET 167 x1000/uL (130-400); RED BLOOD CELL COUNT 4.01 mill/uL (4.2-5.4); RED CELL DISTRIBUTION WIDTH 13.8 % (11.6-14.6)
[2021-11-06] MEDS: BLOOD SUGAR DIAGNOSTIC STRIP TEST SCH ×4 (06:51→21:23)
[2021-11-06 06:59] LABS: CHLORIDE 109 mEq/L (98-107)
[2021-11-06] MEDS ORDERED: HEPARIN SODIUM 1,000 UNIT/1ML VIAL IV ONE (08:22)
[2021-11-06] MEDS: LINAGLIPTIN 5MG TABLET PO SCH (09:00)
[2021-11-06] MEDS: DOCUSATE SODIUM 250MG CAPSULE PO SCH (09:00)
[2021-11-06] MEDS: LOSARTAN POTASSIUM 25 MG TABLET PO SCH (09:00)
[2021-11-06] MEDS: MORPHINE SULFATE 2 MG/ML CPJ (NOT FOR IM USE) IV PRN ×2 (09:13→18:25)
[2021-11-06] MEDS: INSULIN LISPRO 100 UNITS/ML SUBCUT SCH ×4 (09:19→21:00)
[2021-11-06] MEDS: SODIUM CHLORIDE 0.45% 1,000 ML IV SCH (09:20)
[2021-11-06] MEDS ORDERED: ASPIRIN/SOD BICARB/CITRIC ACID 324MG TAB EFF ONE (12:46)
[2021-11-06] MEDS ORDERED: LIDOCAINE HCL 1% 30ML VIAL (10MG/ML) ONE (12:46)
[2021-11-06] MEDS ORDERED: IODIXANOL 320MG/ML 100 ML BOTTLE IV ONE (12:46)
[2021-11-06] MEDS ORDERED: FENTANYL CITRATE/PF 50MCG/ML 2ML VIAL ONE ×2 (13:09→14:23)
[2021-11-06] MEDS ORDERED: MIDAZOLAM HCL 2 MG/2 ML VIAL ONE ×2 (13:09→14:23)
[2021-11-06] MEDS ORDERED: IOHEXOL-300 100 ML BOTTLE ONE (13:59)
[2021-11-06] MEDS ORDERED: HYDRALAZINE 20MG/ML VIAL ONE (14:38)
[2021-11-06] MEDS ORDERED: CLOPIDOGREL 75MG TABLET ONE (14:43)
[2021-11-06] MEDS ORDERED: ATROPINE SULFATE 1MG/10ML SYR IV PRN (14:45)
[2021-11-06] MEDS ORDERED: MORPHINE SULFATE 2 MG/ML CPJ (NOT FOR IM USE) IV PRN (14:45)
[2021-11-06] MEDS ORDERED: ONDANSETRON HCL 4MG/2ML INJ IV PRN (14:45)
[2021-11-06] MEDS ORDERED: ACETAMINOPHEN 325MG TABLET PO PRN (14:45)
[2021-11-06] MEDS ORDERED: CLOPIDOGREL 75MG TABLET PO ONE (14:45)
[2021-11-06] MEDS ORDERED: SODIUM CHLORIDE 0.45% 1,000 ML IV ONE (14:45)
[2021-11-06] MEDS: TRAMADOL 50MG TABLET PO PRN ×2 (16:02→22:17)
[2021-11-06] MEDS: BETAMETHASONE VALERATE 0.1% TOP SCH (21:00)
[2021-11-06] MEDS: FAMOTIDINE 20MG TABLET PO SCH (21:36)
[2021-11-06] MEDS: ATORVASTATIN CALCIUM 10MG TABLET PO SCH (21:36)
[2021-11-07] VITALS (11 sets, daily range): BP systolic 120–152; BP diastolic 60–94
[2021-11-07] MEDS: MORPHINE SULFATE 2 MG/ML CPJ (NOT FOR IM USE) IV PRN ×3 (03:18→21:44)
[2021-11-07] MEDS: BLOOD SUGAR DIAGNOSTIC STRIP TEST SCH ×4 (06:33→22:30)
[2021-11-07] MEDS: INSULIN LISPRO 100 UNITS/ML SUBCUT SCH ×4 (06:33→21:00)
[2021-11-07] MEDS: GABAPENTIN 300MG CAPSULE PO SCH ×3 (06:37→22:00)
[2021-11-07 07:04] LABS: BASOPHILS % 0.6 % (0.0-2.0); EOSINOPHILS % 4.4 % (0.0-5.0); HEMATOCRIT. 36.4 % (36.0-48.0); HEMOGLOBIN. 12.2 g/dL (12.0-16.0); LYMPHOCYTES % 18.8 % (20.0-50.0); MEAN CORPUSCULAR HEMOGLOBIN 28.3 pg (28.0-32.0); MEAN CORPUSCULAR VOLUME 84.7 fL (81.0-99.0); MEAN PLATELET VOLUME 9.2 fl (7.4-10.4); MONOCYTES % 7.1 % (2.0-8.0); NEUTROPHILS % 69.1 % (40.0-76.0); PLATELET 172 x1000/uL (130-400); RED CELL DISTRIBUTION WIDTH 13.6 % (11.6-14.6)
[2021-11-07 08:01] LABS: CHLORIDE 106 mEq/L (98-107)
[2021-11-07] MEDS: LINAGLIPTIN 5MG TABLET PO SCH (08:28)
[2021-11-07] MEDS: ASPIRIN 81MG TABLET PO SCH (08:28)
[2021-11-07] MEDS: LOSARTAN POTASSIUM 25 MG TABLET PO SCH (08:28)
[2021-11-07] MEDS: CLOPIDOGREL 75MG TABLET PO SCH (08:29)
[2021-11-07] MEDS: BETAMETHASONE VALERATE 0.1% TOP SCH ×2 (08:29→21:00)
[2021-11-07] MEDS: DOCUSATE SODIUM 250MG CAPSULE PO SCH (08:29)
[2021-11-07] MEDS ORDERED: BUPIVACAINE HCL/PF 0.5% (5MG/ML) 10ML ONE (15:25)
[2021-11-07] MEDS ORDERED: LIDOCAINE HCL 1% 20ML VIAL (Pyxis) INJ ONE (15:25)
[2021-11-07] MEDS ORDERED: FENTANYL CITRATE/PF 50MCG/ML 2ML VIAL ONE (18:26)
[2021-11-07] MEDS ORDERED: PROPOFOL 200MG/20ML VIAL IV ONE (18:27)
[2021-11-07] MEDS ORDERED: MIDAZOLAM HCL 2 MG/2 ML VIAL ONE (18:27)
[2021-11-07] MEDS ORDERED: LABETALOL 5MG/ML SYR 20 MG/4 ML SYRINGE IV PRN ×2 (18:45)
[2021-11-07] MEDS ORDERED: MEPERIDINE HCL/PF 25MG/ML CPJ IV PRN ×2 (18:45)
[2021-11-07] MEDS ORDERED: HYDROMORPHONE HCL/PF 2MG/ML CPJ IV PRN ×2 (18:45)
[2021-11-07] MEDS ORDERED: ONDANSETRON HCL 4MG/2ML INJ IV PRN ×2 (18:45)
[2021-11-07] MEDS ORDERED: ONDANSETRON HCL 4MG/2ML INJ ONE (18:57)
[2021-11-07] MEDS ORDERED: DEXAMETHASONE 4MG/ML 1ML VIAL ONE (18:57)
[2021-11-07] MEDS: ATORVASTATIN CALCIUM 10MG TABLET PO SCH (21:00)
[2021-11-07] MEDS: HYDROCORTISONE 1% RECTAL CREAM 30GM PR SCH (21:00)
[2021-11-07] MEDS: FAMOTIDINE 20MG TABLET PO SCH (21:00)
[2021-11-07] MEDS: PIPERACILLIN/TAZOBACTAM 3.375 G in DEXTROSE 5% WATER 50 ML IV SCH (23:00)
[2021-11-07] MEDS ORDERED: OXYCODONE HCL/ACETAMINOPHEN 5/325MG TABLET PO PRN (23:15)
[2021-11-08] VITALS: BP 125/65
[2021-11-08 04:00] VITALS: BP 135/67
[2021-11-08] MEDS: GABAPENTIN 300MG CAPSULE PO SCH ×3 (06:09→21:05)
[2021-11-08] MEDS: PIPERACILLIN/TAZOBACTAM 3.375 G in DEXTROSE 5% WATER 50 ML IV SCH ×3 (06:24→21:05)
[2021-11-08 07:26] LABS: BASOPHILS % 0.7 % (0.0-2.0); EOSINOPHILS % 5.3 % (0.0-5.0); HEMATOCRIT. 35.3 % (36.0-48.0); HEMOGLOBIN. 11.8 g/dL (12.0-16.0); LYMPHOCYTES % 15.4 % (20.0-50.0); MEAN CORPUSCULAR HEMOGLOBIN 28.5 pg (28.0-32.0); MEAN CORPUSCULAR VOLUME 85.4 fL (81.0-99.0); MEAN PLATELET VOLUME 9.3 fl (7.4-10.4); MONOCYTES % 8.3 % (2.0-8.0); NEUTROPHILS % 70.3 % (40.0-76.0); PLATELET 167 x1000/uL (130-400); RED BLOOD CELL COUNT 4.13 mill/uL (4.2-5.4); RED CELL DISTRIBUTION WIDTH 13.9 % (11.6-14.6)
[2021-11-08 07:37] LABS: CHLORIDE 113 mEq/L (98-107)
[2021-11-08] MEDS: INSULIN LISPRO 100 UNITS/ML SUBCUT SCH ×4 (07:39→20:50)
[2021-11-08] MEDS: BLOOD SUGAR DIAGNOSTIC STRIP TEST SCH ×4 (07:39→20:50)
[2021-11-08] MEDS: ASPIRIN 81MG TABLET PO SCH (08:21)
[2021-11-08] MEDS: LINAGLIPTIN 5MG TABLET PO SCH (08:22)
[2021-11-08] MEDS: DOCUSATE SODIUM 100MG CAPSULE PO PRN (08:22)
[2021-11-08] MEDS: CLOPIDOGREL 75MG TABLET PO SCH (08:22)
[2021-11-08] MEDS: LOSARTAN POTASSIUM 25 MG TABLET PO SCH (08:22)
[2021-11-08] MEDS: MORPHINE SULFATE 2 MG/ML CPJ (NOT FOR IM USE) IV PRN ×2 (08:24→20:49)
[2021-11-08] MEDS: DOCUSATE SODIUM 250MG CAPSULE PO SCH ×2 (08:28→08:37)
[2021-11-08] MEDS ORDERED: LACTULOSE 20G/30ML UDC PO SCH (09:00)
[2021-11-08] MEDS: HYDROCORTISONE 1% RECTAL CREAM 30GM PR SCH ×2 (09:00→21:00)
[2021-11-08] MEDS: BETAMETHASONE VALERATE 0.1% TOP SCH ×2 (09:00→21:00)
[2021-11-08] MEDS: FAMOTIDINE 20MG TABLET PO SCH (20:50)
[2021-11-08] MEDS: ATORVASTATIN CALCIUM 10MG TABLET PO SCH (20:50)
[2021-11-09] VITALS: BP 105/67
[2021-11-09] MEDS ORDERED: TRAMADOL 50MG TABLET PO NR (01:00)
[2021-11-09] MEDS ORDERED: TRAMADOL 50MG TABLET PO PRN (02:00)
[2021-11-09] MEDS: ACETAMINOPHEN 325MG TABLET PO PRN (03:19)
[2021-11-09 04:00] VITALS: BP 152/68
[2021-11-09] MEDS: GABAPENTIN 300MG CAPSULE PO SCH ×2 (05:30→13:41)
[2021-11-09] MEDS: PIPERACILLIN/TAZOBACTAM 3.375 G in DEXTROSE 5% WATER 50 ML IV SCH ×2 (05:32→13:33)
[2021-11-09] MEDS: BLOOD SUGAR DIAGNOSTIC STRIP TEST SCH ×2 (06:25→13:00)
[2021-11-09 07:05] LABS: BASOPHILS % 0.6 % (0.0-2.0); EOSINOPHILS % 4.9 % (0.0-5.0); HEMATOCRIT. 33.1 % (36.0-48.0); HEMOGLOBIN. 11.4 g/dL (12.0-16.0); LYMPHOCYTES % 14.3 % (20.0-50.0); MEAN CORPUSCULAR HEMOGLOBIN 28.7 pg (28.0-32.0); MEAN CORPUSCULAR VOLUME 83.9 fL (81.0-99.0); MEAN PLATELET VOLUME 9.8 fl (7.4-10.4); MONOCYTES % 7.7 % (2.0-8.0); NEUTROPHILS % 72.5 % (40.0-76.0); PLATELET 162 x1000/uL (130-400); RED BLOOD CELL COUNT 3.95 mill/uL (4.2-5.4); RED CELL DISTRIBUTION WIDTH 13.8 % (11.6-14.6)
[2021-11-09] MEDS: INSULIN LISPRO 100 UNITS/ML SUBCUT SCH ×2 (07:50→13:00)
[2021-11-09 08:00] VITALS: BP 133/65
[2021-11-09] MEDS: DOCUSATE SODIUM 250MG CAPSULE PO SCH (09:00)
[2021-11-09] MEDS: BETAMETHASONE VALERATE 0.1% TOP SCH (09:00)
[2021-11-09] MEDS: LOSARTAN POTASSIUM 25 MG TABLET PO SCH (09:00)
[2021-11-09] MEDS: LINAGLIPTIN 5MG TABLET PO SCH (09:00)
[2021-11-09] MEDS: CLOPIDOGREL 75MG TABLET PO SCH (09:00)
[2021-11-09] MEDS: HYDROCORTISONE 1% RECTAL CREAM 30GM PR SCH (09:00)
[2021-11-09] MEDS: ASPIRIN 81MG TABLET PO SCH (09:43)
[2021-11-09 12:00] VITALS: BP 125/50
== END 2021-11-09 16:00 | disposition home health service (06) | DRG 305 ==
LOC: ER 00:44 → 6EST 01:34 → ENRESERV 13:41 → 3WST 11-06 15:03 → 6EST 11-07 20:58
PROVIDERS: ADMIT Internal Medicine Geriatric Medicine; ATTEND Internal Medicine Geriatric Medicine
PROC: 02HV33Z Insertion of Infusion Device into Superior Vena Cava, Percutaneous Approach (ICD-10-PCS; 2021-11-05)
PROC: B548ZZA Ultrasonography of Superior Vena Cava, Guidance (ICD-10-PCS; 2021-11-05)
PROC: 047U3ZZ Dilation of Left Peroneal Artery, Percutaneous Approach (ICD-10-PCS; principal; 2021-11-06)
PROC: 047N3ZZ Dilation of Left Popliteal Artery, Percutaneous Approach (ICD-10-PCS; 2021-11-06)
PROC: B41G1ZZ Fluoroscopy of Left Lower Extremity Arteries using Low Osmolar Contrast (ICD-10-PCS; 2021-11-06)
PROC: 0Y6M0Z9 Detachment at Right Foot, Partial 1st Ray, Open Approach (ICD-10-PCS; 2021-11-07)
DX: L03.115 Cellulitis of right lower limb (principal); E11.52 Type 2 diabetes mellitus with diabetic peripheral angiopathy with gangrene; I96 Gangrene, not elsewhere classified; I11.0 Hypertensive heart disease with heart failure; E44.1 Mild protein-calorie malnutrition; E11.42 Type 2 diabetes mellitus with diabetic polyneuropathy; I50.9 Heart failure, unspecified; E11.621 Type 2 diabetes mellitus with foot ulcer; L97.519 Non-pressure chronic ulcer of other part of right foot with unspecified severity; D64.9 Anemia, unspecified; M24.412 Recurrent dislocation, left shoulder; E11.65 Type 2 diabetes mellitus with hyperglycemia; N31.9 Neuromuscular dysfunction of bladder, unspecified; E66.9 Obesity, unspecified; E78.00 Pure hypercholesterolemia, unspecified; E78.5 Hyperlipidemia, unspecified; F11.20 Opioid dependence, uncomplicated; I25.10 Atherosclerotic heart disease of native coronary artery without angina pectoris; L40.9 Psoriasis, unspecified; K59.00 Constipation, unspecified; Z20.822 Contact with and (suspected) exposure to COVID-19; W05.0XXA Fall from non-moving wheelchair, initial encounter; Z79.02 Long term (current) use of antithrombotics/antiplatelets; Z79.82 Long term (current) use of aspirin; Z79.899 Other long term (current) drug therapy; Z99.3 Dependence on wheelchair; Y93.89 Activity, other specified; Z79.84 Long term (current) use of oral hypoglycemic drugs; Z79.4 Long term (current) use of insulin; Y92.89 Other specified places as the place of occurrence of the external cause; Y99.8 Other external cause status; Z68.28 Body mass index [BMI] 28.0-28.9, adult; R29.6 Repeated falls; R53.1 Weakness
CPT/HCPCS: 36415; 37224; 37228; 37232; 71045; 72191; 73030; 73620; 73706; 75710; 76937; 80048; 80061; 80076; 81003; 82962; 83036; 83540; 83550; 83605; 83735; 84145; 85025; 85651; 87426; 88305; 88311; 93005; 93923; 93971; 97163; 99285; A6261; C1725; C1760; C1769; C1887; C1893; C1894; J0360; J0696; J1100; J1644; J1650; J1815; J2250; J2270; J2405; J2543; J2704; J3010; J3480; J3490; J7040; J7060; Q9967

== ENCOUNTER 2022-09-29 16:08 | Emergency (ER) | payer MEDICARE, MEDICAID ==
[~2022-09-29] VITALS: Ht 157.5 cm; Wt 75.0 kg
[~2022-09-29 16:08] MED LIST changes: +INSU100I24 SQ; -INSU100V28 IJ; -MELO-106 PO
[2022-09-29 16:12] VITALS: BP 101/58
[2022-09-29] MEDS ORDERED: SODIUM CHLORIDE 0.9% 1,000 ML IV ONE (16:30)
[2022-09-29 16:46] LABS: BASOPHILS % 0.2 % (0.0-2.0); EOSINOPHILS % 1.9 % (0.0-5.0); HEMATOCRIT. 30.5 % (36.0-48.0); HEMOGLOBIN. 10.1 g/dL (12.0-16.0); LYMPHOCYTES % 11.1 % (20.0-50.0); MEAN CORPUSCULAR HEMOGLOBIN 29.5 pg (28.0-32.0); MEAN CORPUSCULAR VOLUME 89.1 fL (81.0-99.0); MONOCYTES % 7.2 % (2.0-8.0); NEUTROPHILS % 79.6 % (40.0-76.0); PLATELET 129 x1000/uL (130-400); RED BLOOD CELL COUNT 3.43 mill/uL (4.2-5.4); RED CELL DISTRIBUTION WIDTH 15.6 % (11.6-14.6)
[2022-09-29 16:56] LABS: CHLORIDE 107 mEq/L (98-107)
[2022-09-29 17:07] LABS: CREATINE KINASE 211 IU/L (26-192)
[2022-09-29] MEDS ORDERED: VANCOMYCIN 1G PREMIX 200 ML IV ONE (23:00)
[2022-09-29] MEDS ORDERED: PIPERACILLIN/TAZ 3.375G PREMIX 50 ML IV ONE (23:00)
== END 2022-09-30 01:33 | disposition home or self-care (01) ==
LOC: ER 16:21 → EDBEDREQ 09-30 00:26 → ER 09-30 01:33 → CANBEDREQ 09-30 22:26
DX: T68.XXXA Hypothermia, initial encounter (principal); E11.9 Type 2 diabetes mellitus without complications; I10 Essential (primary) hypertension; Z79.899 Other long term (current) drug therapy
CPT/HCPCS: 36415; 80053; 82550; 83605; 84443; 84484; 85025; 93005; 99291; J7030